=== PATIENT | male | born 1950 | race Caucasian/White ===

== ENCOUNTER → 2017-12-16 | Outpatient (CLI) | payer OTHER | LOC: FIMAGING 12:42 | PROVIDERS: ATTEND Internal Medicine | DX: M79.641 Pain in right hand (principal); M79.89 Other specified soft tissue disorders ==

== ENCOUNTER → 2018-01-23 | Outpatient (CLI) | payer OTHER | LOC: FIMAGING 17:52 | PROVIDERS: ATTEND Internal Medicine | DX: R05 Cough (principal); R94.5 Abnormal results of liver function studies; K75.9 Inflammatory liver disease, unspecified; D72.1 Eosinophilia ==

== ENCOUNTER 2018-01-24 12:26 | Inpatient (IN) | payer OTHER ==
[2018-01-24] MEDS ORDERED: ONDANSETRON DISINTEGRATING 4 MG TAB PO PRN (14:50)
[2018-01-24] MEDS ORDERED: diphenhydrAMINE 25 MG CAP PO PRN (14:50)
[2018-01-24] MEDS ORDERED: PROMETHAZINE HCL 25 MG TAB PO PRN (14:50)
[2018-01-24] MEDS ORDERED: ONDANSETRON 4 MG/2 ML VIAL IVP PRN (14:50)
[2018-01-24] MEDS ORDERED: PROMETHAZINE HCL 25 MG/ML INJ IVP PRN (14:50)
[2018-01-24] MEDS: D5W 1/2 NS 1,000 ML IV SCH (16:04)
[2018-01-24 16:07] LABS: PLATELET COUNT 301 10^3/uL (150-400)
[2018-01-24 16:17] LABS: INR 1.42 (0.83-1.16); PROTIME(PATIENT) 17.5 SEC (12.0-15.0)
[2018-01-24 16:59] LABS: CREATINE KINASE 53 IU/L (0-224)
[2018-01-24] MEDS ORDERED: IOPAMIDOL (ISOVUE-300) 100 ML BTL ONE (17:56)
[2018-01-24] MEDS ORDERED: NAPROXEN SODIUM 220 MG TAB PO PRN (19:46)
[2018-01-24] MEDS ORDERED: IBUPROFEN 200 MG TAB PO PRN (19:46)
[2018-01-24] MEDS ORDERED: ASPIRIN EC 325 MG TAB PO PRN (19:47)
--- NOTE | 2018-01-24 19:53 | PDGENHP ---
History and Physical - Chief Complaint Acute fever - History of Present Illness Primary care provider: Dr. Chandler Sharma HPI: 67-year-old male presenting with acute fever characterized as temperature of a 101 degrees F or greater, with associated general malaise including anorexia, chills, fatigue, headache, myalgias, nonproductive cough. Onset of symptoms was 4 weeks ago, on his 1st day in [place]. The patient did not have any clearly identifiable precipitant, and prior to his onset of symptoms, he had otherwise been feeling well. The 1st symptom that he noted was fatigue and then the other symptoms began to involved. His headache is located posteriorly and is not associated with any neck stiffness or photophobia. Over the past several days, his fever seems to be worsening, as does his nonproductive cough. The fevers seems to be temporarily alleviated by ASA. The patient otherwise denies any preceding night sweats, hematochezia, melena, vomiting or diarrhea. He has not recently changed any of his medications, and he has followed up with his primary care provider for the symptoms, who raman labs that noted severe eosinophilia, leukocytosis, transaminitis, and elevated inflammatory markers. History Information - Allergies/Home Medication List Allergies/Adverse Reactions: No Known Allergies Allergy (Unverified 11/18/15 16:26) Home Medications: Aspirin [Aspirin 81mg (*)] 81 mg PO DAILY 11/18/15 [Last Taken 01/24/18 05:00] Atorvastatin Calcium [Lipitor 10 mg (RX)] 10 mg PO DAILY 11/18/15 [Last Taken ] Cholecalciferol Vit D3 [Vitamin D3 (OTC)] 1,000 units PO DAILY 11/18/15 [Last Taken 01/23/18] Ezetimibe [Zetia 10 MG (RX)] 10 mg PO DAILY 11/18/15 [Last Taken 01/23/18] Herbals/Supplements -Info Only 1 ea PO DAILY 01/24/18 [Last Taken Unknown] Ibuprofen [Motrin (*)] 400 mg PO Q8 PRN 01/24/18 [Last Taken Unknown] Levothyroxine Sodium 75 mcg PO DAILY@06 01/24/18 [Last Taken 01/24/18] Naproxen Sodium [Aleve 220 MG (*)] 220 mg PO BID PRN 01/24/18 [Last Taken Unknown] [place]-3 Fatty Acids [Fish Oil 1000 mg (*)] 1,000 mg PO DAILY 01/24/18 [Last Taken 01/23/18] I have personally reviewed and updated: family history, medical history, social history, surgical history - Past Medical History Additional medical history: Pulmonary nodule w/ normal PET scan 2010. Cardiac coronary calcifications on ASA 81 - Surgical History Reports: no pertinent surgical hx - Family History Additional family history: no rheumatologic abnormalities, aunt w/ leukemia, no lymphomas - Social History Smoking Status: Never smoked Alcohol Use: Occasionally Drug Use: None Additional social history: active lifestyle, most recent travel was [place] over past 4 weeks, and prior to that was [place] and [facility] within past several months; most recent international travel was [place] 1 year ago Review of Systems Review of Systems: ROS: 10pt was reviewed & negative except for what was stated in HPI & below Constitutional: Reports: fever, malaise, weakness Respiratory: Reports: cough Gastrointestinal: Reports: other (anorexia) Neurological: Reports: headache Physical Exam Physical Exam: Temp Pulse Resp BP Pulse Ox 36.9 C 82 20 115/63 94 01/24/18 16:29 01/24/18 16:29 01/24/18 16:29 01/24/18 16:29 01/24/18 16:29 Constitutional: appears nourished, not in pain, uncomfortable Eyes: PERRL, anicteric sclera, EOMI Ears, Nose, Mouth, Throat: moist mucous membranes, hearing normal, ears appear normal, no oral mucosal ulcers Cardiovascular: regular rate and rhythym, no murmur, rub, or gallop, No edema Respiratory: no respiratory distress, no rales or rhonchi, clear to auscultation Gastrointestinal: normoactive bowel sounds, other (Nontender, palpable liver, no splenomegaly), No tenderness, No guarding, No distension Skin: warm, rash, No abrasion (dblanchable circumscribed area on his left upper extremity ventral surface) Musculoskeletal: other (Full range of motion of neck without any pain elicited, no tenderness over the posterior spine) Neurologic: AAOx3, sensation intact bilaterally, No weakness, No facial droop Psychiatric: interacting appropriately, not anxious, not encephalopathic, thought process linear Lymph, Heme, Immunologic: no supraclavicular LAD, other (Palpable but nontender bilateral 1 cm submandibular lymph nodes, no axillary lymphadenopathy) Lab Data & Imaging Review 01/24/18 15:50 01/24/18 15:50 WBC 12.37 10^3/uL (3.80-9.50) H 01/24/18 15:50 RBC 3.75 10^6/uL (4.40-6.38) L 01/24/18 15:50 Hgb 11.7 g/dL (13.7-17.5) L 01/24/18 15:50 Hct 33.2 % (40.0-51.0) L 01/24/18 15:50 MCV 88.5 fL (81.5-99.8) 01/24/18 15:50 MCH 31.2 pg (27.9-34.1) 01/24/18 15:50 MCHC 35.2 g/dL (32.4-36.7) 01/24/18 15:50 RDW 13.2 % (11.5-15.2) 01/24/18 15:50 Plt Count 301 10^3/uL (150-400) 01/24/18 15:50 MPV 9.4 fL (8.7-11.7) 01/24/18 15:50 Neut % (Auto) 83.9 % (39.3-74.2) H 01/24/18 15:50 Lymph % (Auto) 3.0 % (15.0-45.0) L 01/24/18 15:50 Taylor % (Auto) 7.8 % (4.5-13.0) 01/24/18 15:50 Eos % (Auto) 4.4 % (0.6-7.6) 01/24/18 15:50 Baso % (Auto) 0.3 % (0.3-1.7) 01/24/18 15:50 Nucleat RBC Rel Count 0.0 % (0.0-0.2) 01/24/18 15:50 Absolute Neuts (auto) 10.37 10^3/uL (1.70-6.50) H 01/24/18 15:50 Absolute Lymphs (auto) 0.37 10^3/uL (1.00-3.00) L 01/24/18 15:50 Absolute Monos (auto) 0.97 10^3/uL (0.30-0.80) H 01/24/18 15:50 Absolute Eos (auto) 0.55 10^3/uL (0.03-0.40) H 01/24/18 15:50 Absolute Basos (auto) 0.04 10^3/uL (0.02-0.10) 01/24/18 15:50 Absolute Nucleated RBC 0.00 10^3/uL (0-0.01) 01/24/18 15:50 Immature Gran % 0.6 % (0.0-1.1) 01/24/18 15:50 Seg Neutrophils % 78 % 01/24/18 15:50 Band Neutrophils % 5 % 01/24/18 15:50 Lymphocytes % 2 % 01/24/18 15:50 Monocytes % 11 % 01/24/18 15:50 Eosinophils % 4 % 01/24/18 15:50 Immature Gran # 0.07 10^3/uL (0.00-0.10) 01/24/18 15:50 Absolute Seg Neuts 9.65 10^/uL (1.70-6.50) H 01/24/18 15:50 Absolute Band Neuts 0.62 10^3/uL (0.00-0.70) 01/24/18 15:50 Absolute Lymphocytes 0.25 10^3/uL (1.00-3.00) L 01/24/18 15:50 Absolute Monocytes 1.36 10^3/uL (0.30-0.80) H 01/24/18 15:50 Absolute Eosinophils 0.49 10^3/uL (0.03-0.40) H 01/24/18 15:50 RBC/WBC/PLT Morphology NORMAL (NORMAL) 01/24/18 15:50 Platelet Estimate ADEQUATE (ADEQ) 01/24/18 15:50 PT 17.5 SEC (12.0-15.0) H 01/24/18 15:50 INR 1.42 (0.83-1.16) H 01/24/18 15:50 APTT 30.1 SEC (23.0-38.0) 01/24/18 15:50 Sodium 133 mEq/L (135-145) L 01/24/18 15:50 Potassium 4.2 mEq/L (3.5-5.2) 01/24/18 15:50 Chloride 98 mEq/L (97-110) 01/24/18 15:50 Carbon Dioxide 22 mEq/l (22-31) 01/24/18 15:50 Anion Gap 13 mEq/L (8-16) 01/24/18 15:50 BUN 30 mg/dL (7-23) H 01/24/18 15:50 Creatinine 1.2 mg/dL (0.7-1.3) 01/24/18 15:50 Estimated GFR > 60 01/24/18 15:50 Glucose 131 mg/dL (70-100) H 01/24/18 15:50 Calcium 8.5 mg/dL (8.5-10.4) 01/24/18 15:50 Total Bilirubin 1.4 mg/dL (0.1-1.4) 01/24/18 15:50 AST 39 IU/L (17-59) 01/24/18 15:50 ALT 125 IU/L (21-72) H 01/24/18 15:50 Alkaline Phosphatase 236 IU/L (38-126) H 01/24/18 15:50 Creatine Kinase 53 IU/L (0-224) 01/24/18 15:50 Total Protein 6.4 g/dL (6.3-8.2) 01/24/18 15:50 Albumin 3.2 g/dL (3.5-5.0) L 01/24/18 15:50 TSH 0.714 uIU/mL (0.465-4.680) 01/24/18 15:50 Urine Color MARGI 01/24/18 16:20 Urine Appearance HAZY 01/24/18 16:20 Urine pH 5.0 (5.0-7.5) 01/24/18 16:20 Ur Specific [place] 1.023 (1.002-1.030) 01/24/18 16:20 Urine Protein 1+ (NEGATIVE) H 01/24/18 16:20 Urine Ketones NEGATIVE (NEGATIVE) 01/24/18 16:20 Urine Blood NEGATIVE (NEGATIVE) 01/24/18 16:20 Urine Nitrate NEGATIVE (NEGATIVE) 01/24/18 16:20 Urine Bilirubin NEGATIVE (NEGATIVE) 01/24/18 16:20 Urine Urobilinogen 2.0 EU (0.2-1.0) H 01/24/18 16:20 Ur Leukocyte Esterase NEGATIVE (NEGATIVE) 01/24/18 16:20 Urine RBC 1-3 /hpf (0-3) 01/24/18 16:20 Urine WBC 5-10 /hpf (0-3) H 01/24/18 16:20 Ur Epithelial Cells NONE SEEN /lpf (NONE-1+) 01/24/18 16:20 Hyaline Casts 15-25 /lpf (0-1) H 01/24/18 16:20 Granular Casts 5-15 /lpf (0-1) 01/24/18 16:20 Urine Mucus 2+ /lpf (NONE-1+) H 01/24/18 16:20 Urine Glucose NEGATIVE (NEGATIVE) 01/24/18 16:20 Visualized and Interpreted imaging results: Yes Interpretation: No significant pulmonary abnormalities, small nodules, hepatomegaly with some heterogenous appearance Assessment & Plan Assessment: 67-year-old male presenting with persistent fevers and general malaise, eosinophilia, transaminitis Plan: 1. Fevers. Acute, new problem this provider, further workup indicated. Possible etiologies include parasitic verses malignancy -discussed with Dr. Grady García, he has reviewed patient's current CBC which does not demonstrate nearly a significant of eosinophilia as previous ones from 01/20/18, which was 59%, suggesting that the driving process may be subsiding -that being said, the patient's fevers are both persistent and symptomatically worsening, and malignancy should be considered particularly since patient has a heterogenous appearing liver on CT scan -getting head CT with IV contrast to rule out any brain lesions -will get AFP and CEA -repeating inflammatory markers, most recent ESR 28, CRP 37, LDH 778 -strong ovoid is pending -flow cytometry pending -if the consensus tomorrow as that this may be driven by malignancy, would recommend formal oncology consultation -most recent outpatient labs prior to this episode were 01/16/2015, outside records reviewed, demonstrating a white blood cell count of 4900 with a normal differential, hemoglobin of 14.2 -supportively treat with aspirin, per patient request 2. Transaminitis. Patient's current AST ALT and alk phos are better than previous lab draws from 1 week ago, indicating that the underlying process may be self resolving but the patient's hepatic appearance is certainly concerning -acute hepatitis panel negative -holding statin and Zetia until resolved 3. Suspected coronary artery disease. Chronic, chronically on aspirin 81, currently holding given the patient wants to take aspirin 325 as needed for fevers Diet. Regular Prophylaxis. High risk patient, hold pharmacologic in case liver biopsy indicated, placed on SCDs Code. Full Disposition. Anticipated discharge is potentially 3/3, but the patient continues to experience persistent fevers, requires ongoing infectious or malignant workup, then patient will be upgraded to inpatient admission status tomorrow by Dr. Martinez.
[2018-01-25] MEDS: ASPIRIN EC 325 MG TAB PO PRN ×3 (00:21→15:49)
[2018-01-25] MEDS: D5W 1/2 NS 1,000 ML IV SCH ×2 (02:18→14:09)
[2018-01-25] MEDS: LEVOTHYROXINE 75 MCG TAB PO SCH (05:08)
[2018-01-25 06:04] LABS: PLATELET COUNT 297 10^3/uL (150-400)
[2018-01-25] MEDS: CHOLECALCIFEROL VIT D3 1,000 UNITS TAB PO SCH (07:49)
[2018-01-25] MEDS: OMEGA-3 FATTY ACIDS 1,000 MG CAP PO SCH (07:49)
[2018-01-25] MEDS ORDERED: ENOXAPARIN 40 MG/0.4 ML SYR SC SCH (09:00)
[2018-01-25] MEDS ORDERED: ASPIRIN 81 MG CHEWABLE TAB PO SCH (09:00)
[2018-01-25] MEDS ORDERED: Herbals/Supplements -Info Only PO SCH (09:00)
[2018-01-25] MEDS ORDERED: IOPAMIDOL (ISOVUE-300) 100 ML BTL ONE (09:21)
--- NOTE | 2018-01-25 13:52 | GCON ---
[f rep st] CONSULTATION DATE OF CONSULTATION: 01/24/2018 REFERRING PHYSICIAN: Spencer Sharma MD REASON FOR REFERRAL: Fever and eosinophilia. HISTORY OF PRESENT ILLNESS: Patient is a 67-year-old male, who was seen by his primary care chrystal franco last week after returning from a [id number] week trip with his to [place]. The patient was i n good health when he left for [place]. He reported being tired almost immediately after being [place] . [place] had [place] exposures. They did eat local cuisine and seafood, including shrimp. He did walk on the beach, but there were no obviou s odd encounters. Initially, the patient symptoms in [place] were mostly fatigue. Began developing w orsening night sweats and body aches. Also, noted the increasing episode of fever. Patient was seen in [place] and told it was a viral illness. Patient returned home to [place] and saw his primary ct re physician on 01/20 when he had blood drawn. That blood draw revealed a leukocytosis to 18,400, wi th a relative eosinophilia of 59%. Repeat CBC was done on 01/23/2018 which showed a leukocytosis of 15.2, with an eosinophilia of 31%. He was recommended for admission today. Admitting labs today patsy w no significant eosinophilia. He has a mild retained leukocytosis of 12.4, with an eosinophil perce nt of 4%, absolute count 550. Currently, the patient is resting comfortably in his hospital bed. He is accompanied by his . Symptoms include fever with sweats. He has generalized muscle and join t aches but nothing specific. Mild headache. No vision changes or photophobia. No nausea, vomiting , or diarrhea. No urinary symptoms. PAST MEDICAL HISTORY: 1. History of a pulmonary nodule. 2. Coronary artery disease. PAST SURGICAL HISTORY: No significant surgery. ANTIBIOTICS: Patient is on no antibiotics presently. ALLERGIES: No known drug allergies. SOCIAL HISTORY: Patient is . No significant tobacco or drug use. Averages approximately 1 d rink a day. No recent travel other than [place]. Other travel within the year has been in the [place]. Over a year ago was in [place] with his . REVIEW OF SYSTEMS: Other than that detailed above in his present illness, comprehensive 10-system re view is negative. PHYSICAL EXAMINATION: VITAL SIGNS: Temperature, maximum, is 39.6. Temperature, current, is 37.4, h eart rate 64, respiratory rate is 16, blood pressure is 106/65. GENERAL: The patient is a well-form ed, well-nourished, nontoxic-appearing male, in no acute distress. He is pleasant in demeanor. He i s alert and oriented x3. HEENT: Normocephalic for age. Atraumatic. No scleral icterus. No oral l esion. No drainage from the nares. EYES: Lids and conjunctivae are within normal limits. Pupils a re equal and round bilaterally. NECK: Supple. No meningismus. LUNGS: Clear to auscultation bilat erally. There is good effort. HEART: Regular rate and rhythm. No murmur, rub, or gallop noted. N o significant peripheral edema. SKIN: Warm and dry to the touch. No rash or lesion noted. ABDOMEN : Soft, nontender. No masses. MUSCULOSKELETAL: No muscle tenderness is noted. No joint line effu zak or arthritis seen. NEURO: Cranial nerves 2-12 seem to be intact. Peripheral sensation seems i ntact in extremities. LABORATORY DATA: The patient has a CBC dated 01/24/2018 that shows a white blood cell count of 12.37 , hemoglobin of 11.7, hematocrit of 33.2, and a platelet count of 301. Differential is left-shifted with 84% segmented neutrophils. Serum chemistries on 01/24/2018 show a sodium of 133, potassium 4.2, chloride of 98, bicarbonate of 22, BUN of 30 and creatinine of 1.2. AST is 39. ALT is 125. Urinalysis on 01/24/2018 shows 5-10 white cells per high-powered field. CD4 count on 01/23/2018 show s an absolute lymphocyte count of 760, with 473 absolute CD4 cells. Hepatitis antibodies are negativ e, apart from the hep B surface antibody. Strongyloides IgG antibody is negative. ASSESSMENT: Fever and eosinophilia. What is surprising in this case is the eosinophilia has dropped to normal today from the extraordinarily elevated level 5 or 6 days ago. This read was confirmed by review of the smear in the laboratory today. I think this probably rules out a lot of hematologic e xpansion conditions. However, fungal or parasitic disease could still be in the picture. 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 This requires consumption of food stuffs contaminated by intermediate hosts, such as sna ils, crabs, and sometimes theoretically shrimp. This may be the situation in this patient, although this is a rare condition. Also, this condition usually manifests as meningitis. The diagnostic rout e forward was discussed with Dr. Andrews. We will do a contrasted CT of his chest, abdomen, and pelvi s, and then will add a head CT with contrast on this. If we see any pathology which needs to be addr essed, we will pursue that. If there is no pathology and diagnosis is elusive, we will pursue an LP for spinal fluid to see if he has eosinophilia in the spinal fluid. If this is true, we can send spe cialty tests out for PCR amplification for angiostrongyliasis. There is no treatment for this condit ion, only supportive care. PLAN: 1. Observe fever curve and trends in leukocytosis in subgroups of white count. 2. Follow his clinical course. 3. Imaging as described above. /[id number]/MODL
[2018-01-25] MEDS ORDERED: NS 500 ML IV ONE (15:50)
--- NOTE | 2018-01-25 16:27 | ASMTCMCOM ---
CM Note CM Note Notes: Spoke w/RN, anticipates pt will dc home w/support of when medically stable. CM available for any changes. DC Plan: Independent Date Signed: 01/25/2018 04:26 PM Electronically Signed By:Jessica Moreira RN
[2018-01-25] MEDS: ACETAMINOPHEN 325 MG TAB PO PRN ×2 (18:34→22:12)
--- NOTE | 2018-01-25 18:42 | PCMIDPN ---
Assessment/Plan: Assessment/Plan: 1. Fevers, Eosinophilia, abnormal liver scan: -uncertain as to the etiology of his symptoms and abnormal scan -He also has thickened distal esophagus of uncertain etiology -blood cx pending--will follow -had diarrhea today, so GI pathogen PCR and stool O & p sent. -Will do resp pathogen pcr as well to ensure no concomitant influenza or viral infection -Reviewed Ct chest/abd images with radiology: no well defined collection to suggest liver abscess. Chest without changes to suggest septic emboli. liver changes concerning for possible cancer/?mets per radiology. -If cultures remain negative, Recommend further evaluation by Hem/Onc as he will likely need liver biopsy. Also recommend evaluation by GI for possible EGD. - Reviewed labs with patient, at bedside. Discussed possible differential diagnosis. - Given abnormalities seen on liver and distal esophagus feel we should pursue those first. Given relatively mild headache and not classic symptoms of meningitis and the aforementioned abnormalities, will hold off on LP at this time. -Continue to observe off antibiotics for now. -care coordinated with his PCP. -coordinating care with hospitalist team. - care coordinated with RN. Meds --no antbx Subjective: intermittent fevers. occasional chills with fevers. only mild intermittent headache without neck stiffness. dry cough. fatigue. loose stools this Am. some myagias. no arthralgias. denies rash. symptoms of fatigue started about 2 weeks prior to trip to [place]. Then in [place] sx of fevers, myalgias started. after returning home, sx seemed more pronounced with respect to fevers, fatigue, and myalgias. he eats well cooked meats and seafood. he does not eat cervicea. shrimp is cooked. No freshwater exposure here in [place] or in [place]. mostly walked the beach. he states his weight has been stable. denies epigastric pain, nausea, sx of acid reflux. Reviewed CT's with radiology today. Objective: Vital Signs Temp Pulse Resp BP Pulse Ox 39.4 C H 86 20 100/56 L 91 L 01/25/18 18:25 01/25/18 18:25 01/25/18 18:25 01/25/18 18:25 01/25/18 18:25 Laboratory Results 01/25/18 05:25 01/25/18 05:25 01/24/18 01/25/18 01/26/18 05:59 05:59 05:59 Intake Total 2937 2382 Output Total 870 500 Balance 2067 1882 ESR 64 MM/HR (0-20) H 01/25/18 05:25 C-Reactive Protein 209.2 mg/L (<10.0) H 01/25/18 05:25 - Physical Exam General Appearance: alert, no apparent distress Respiratory: lungs clear Neck: supple Cardiac/Chest: regular rate, rhythm Extremities: No swelling Abdomen: normal bowel sounds, non-tender, soft, No distended Skin: No rash - Time Spent With Patient Time Spent with Patient: greater than 35 minutes Time Spent with Patient: Greater than 35 minutes spent on this patients care, greater than 50% of time spent counseling, educating, and coordinating care regarding the above mentioned plan. ICD10 Worksheet Patient Problems: Problems Problem Status Onset Fever Acute
[2018-01-25] MEDS ORDERED: NS 1,000 ML IV ONE (19:38)
--- NOTE | 2018-01-25 19:45 | HOSPPROG ---
Hospitalist Progress Note Assessment/Plan: DIAGNOSES: -acute febrile illness of uncertain etiology -acute early sepsis developing today (new problem at this time with further assessment and management required) -single diarrheal stool today without pain or bleeding -severe eosinophilia at 10,000 at initial evaluation has now resolved down to 300 -elevated serologic markers of inflammation with high CRP and sed rate -mild hepatic transaminase elevations probably related to the above -recent travel to [place], symptoms may have actually started before travel to [place]; no other specific exposures identified in his history -no imaging findings yet to suggest a local source or site or etiology of his illness PLANS: -will begin IV fluid resuscitation right now and check serum lactate, follow for any further progression of sepsis like changes -follow cultures another serologic studies closely -I have ordered stool samples for ova and parasites and the GI pathogen panel -I agree with Dr. Soriano that at this point no specific signs of meningitis and reasonable to delay a decision to proceed with lumbar puncture unless worsening headache or neurologic symptoms develope -continue on observation without antibiotics at this time; however if he has progression of sepsis would start some empiric antibiotics -agree with respiratory viral pathogen panel SUBJECTIVE: Still having rigors and chills but no other localizing symptoms or discomforts at all Poor appetite but eating no nausea He did have 1 episode of diarrheal stool earlier today without any abdominal pain or blood OBJECTIVE Vitals reviewed: T-max today so far 39.4, the patient was having some mild rigors as I visited him, blood pressures are drifting down during the day, some degree of tachypnea as well Exam: alert oriented appears mildly uncomfortable but not in any pain Mentation is normal, affect normal No adenopathy anywhere HEENT exam entirely normal skin warm dry color ok no rash or other skin lesions shins noted; notably he does have fairly poor capillary refill in his fingers during my exam with a minimal peripheral cyanosis resps not labored lungs clear BSs heart regular no murmur heard abd soft nondistended nontender, bowel sounds present limbs warm, no edema No tremors or fasciculations, no focal weakness, no cranial nerve abnormalities , pupils normal with normal light reflexes iv site ok I reviewed his CTs head scan images today which did not show any particular abnormalities of concern including nothing that would explain his fever illness Microbiology data: Cultures all pending with no growth at this time Laboratory data: Some improvement continues in his eosinophilia which is now normal White blood cell count slightly improved CRP greater than 200 also very high sed rate Liver enzymes slightly better today Renal function stable Objective: Vital Signs Temp Pulse Resp BP Pulse Ox 37.6 C 79 16 96/49 L 92 01/25/18 19:03 01/25/18 19:03 01/25/18 19:03 01/25/18 19:03 01/25/18 19:03 Laboratory Results 01/25/18 05:25 01/25/18 05:25 01/24/18 01/25/18 01/26/18 06:59 06:59 06:59 Intake Total 2937 2382 Output Total 870 500 Balance 2067 1882 PT 17.5 SEC (12.0-15.0) H 01/24/18 15:50 INR 1.42 (0.83-1.16) H 01/24/18 15:50 - Time Spent With Patient Time Spent with Patient: greater than 35 minutes Time Spent with Patient: Greater than 35 minutes spent on this patients care, greater than 50% of time spent counseling, educating, and coordinating care regarding the above mentioned plan. ICD10 Worksheet Patient Problems: Problems Problem Status Onset Fever Acute - ICD10 Problem Qualifiers (1) Fever
--- NOTE | 2018-01-25 20:29 | PDMN ---
Medical Necessity Medical necessity: C/M review: Patient meets INPT criteria under [facility] M-160 Sepsis and other febrile illness without focal infection: Acute and persistent febrile illness of uncertain etiology, ongoing high fevers to 39.4 T max, acute early sepsis developing 01/25/2018 (new problem), single diarrheal stool 01/25/2018 , WBC 12.37, 11.58, VBG lactic acid 2.7, Na 133 x 2, BUN 30, 25, ALT 125, 100, Alk Phos 236, 204, C-reactive protein 209.2, ESR 64, GI tract panel pending, stool cultures pending, requiring IV NS bolus 01/25/18, ongoing IV D51/2 NS 100 ml /hr, assessment and management of sepsis, comorbid travel to [place] prior to this admission. anticipates > 2 [place] LOS for ongoing med nec. Patient is Medicare Advantage which follows guidelines CMS puts forth.
[2018-01-26] MEDS: D5W 1/2 NS 1,000 ML IV SCH ×2 (01:45→14:13)
[2018-01-26 05:27] LABS: PLATELET COUNT 274 10^3/uL (150-400)
[2018-01-26] MEDS: LEVOTHYROXINE 75 MCG TAB PO SCH (06:01)
[2018-01-26] MEDS: CHOLECALCIFEROL VIT D3 1,000 UNITS TAB PO SCH (10:01)
[2018-01-26] MEDS: OMEGA-3 FATTY ACIDS 1,000 MG CAP PO SCH (10:01)
--- NOTE | 2018-01-26 11:59 | HOSPPROG ---
Hospitalist Progress Note Assessment/Plan: DIAGNOSES: -acute febrile illness of uncertain etiology -acute early sepsis developing 3/3 appears resolved at this time -single diarrheal stool 3/3 was likely due to contrast for his CT scan * I do not think the E coli identified in the stool pathogen panel likely rib present true pathogen in his case -severe eosinophilia at 10,000 at initial evaluation has now resolved down to 140 very rapidly -elevated serologic markers of inflammation with high CRP >200 and sed rate -mild hepatic transaminase elevations probably related to the above * Continued improvement * Subtle changes are seen on CT imaging of his liver, not mentioned in the initial CT scan report, presumably related to his illness but her of uncertain pathology or etiology -recent travel to [place], symptoms may have actually started before travel to [place]; no other specific exposures identified in his history -no imaging findings yet to suggest a local source or site or etiology of his illness I reviewed in detail today with Dr. Soriano. At this time he feels better and looks more relaxed. There are still no concerning examination findings. White blood cell count numbers are all improving liver numbers are improving and no other real concerning blood test abnormalities at this point. The early sepsis that was starting up last evening seems to be resolved but will need to watch closely. There is still no identified cause of this illness. The high eosinophilic count raises questions about a number of potential etiologies but with rapid resolution without any treatment unclear exactly what this high eosinophilic count means. The presence however of such high fevers over such a period of time without any obvious localizing syndrome or diagnostic findings would be potentially consistent with a number of eosinophilic illnesses including parasitic or otherwise. PLANS: -follow the clinical course of his fevers closely and watch for any signs of recurring sepsis -follow cultures and other serologic studies closely -I have ordered stool samples for ova and parasites but these are still needing to be collected -I agree with Dr. Soriano that at this point no specific signs of meningitis and reasonable to delay a decision to proceed with lumbar puncture unless worsening headache or neurologic symptoms develope -continue on observation without antibiotics at this time; however if he has progression of sepsis or any signs of a bacterial process would start some empiric antibiotics -waiting on respiratory viral pathogen panel result SUBJECTIVE: Had severe sweats last night needing to change his bedding twice No rigors so far today No new localizing symptoms, discomforts, or other changes that he can mention OBJECTIVE Vitals reviewed: Fevers up to 39.4 early last evening but have been afebrile since then; blood pressures remain borderline low, pulse respirations normal, oxygen saturations normal Exam: alert oriented looks more comfortable and relaxed right at the moment not having any rigors Mentation is normal, affect normal No adenopathy anywhere HEENT exam entirely normal skin warm dry color ok no rash or other skin lesions shins noted; capillary refill much better in his fingers today Respirations relaxed lungs clear BSs heart regular no murmur heard abd soft nondistended nontender, bowel sounds present limbs warm, no edema, joints all normal, no clubbing no other nail changes No tremors or fasciculations, no focal weakness, no cranial nerve abnormalities , pupils normal with normal light reflexes iv site ok Laboratory data: Total white blood cell count continues to decrease still 11, eosinophils now at 140 Liver again enzymes slightly better today Renal function stable no new concerning abnormalities Notably he has a CEA and AFP that are normal Microbiology data: Blood cultures remain normal Stool pathogen study shows positive for enteropathogenic E coli I spoke with Dr. Sharma his primary care his said that he had done a flow cytometry study it in the outpatient setting prior to admission and this appeared normal, but I do not have those results available at this time. Objective: Vital Signs Temp Pulse Resp BP Pulse Ox 36.3 C 64 20 107/63 97 01/26/18 11:07 01/26/18 11:07 01/26/18 11:07 01/26/18 11:07 01/26/18 11:07 Microbiology 01/25/18 19:35 Respiratory Panel (PCR) - Final Nasal, Sinus - Swab No Organism Detected 01/25/18 16:30 Gastrointestinal Tract Panel (PCR) - Final Stool E.coli Enteropathogenic(Epec) Laboratory Results 01/26/18 04:45 01/26/18 04:45 01/25/18 01/26/18 01/27/18 06:59 06:59 06:59 Intake Total 2937 2532 4352 Output Total 870 800 50 Balance 2067 1732 4302 PT 17.5 SEC (12.0-15.0) H 01/24/18 15:50 INR 1.42 (0.83-1.16) H 01/24/18 15:50 - Time Spent With Patient Time Spent with Patient: greater than 35 minutes Time Spent with Patient: Greater than 35 minutes spent on this patients care, greater than 50% of time spent counseling, educating, and coordinating care regarding the above mentioned plan. ICD10 Worksheet Patient Problems: Problems Problem Status Onset Fever Acute - ICD10 Problem Qualifiers (1) Fever
--- NOTE | 2018-01-26 16:09 | PCMIDPN ---
Assessment/Plan: Assessment/Plan: 1. Fevers, Eosinophilia, abnormal liver scan: -uncertain as to the etiology of his symptoms and abnormal scan -He also has thickened distal esophagus of uncertain etiology -blood cx ngtd -Gi pcr panel with EPEC. no further diarrhea. This is not responsible for his clinical presentation. Does not warrant treatment. REviewed with patient. -Resp pcr neg. Strongyloides negative. Hepatitis panel negative. (positive Hep B Ab). - AFP and CEA negative. -Reviewed Ct chest/abd images with radiology: no well defined collection to suggest liver abscess. Chest without changes to suggest septic emboli. liver changes concerning for possible cancer per radiology. - Reviewed labs with patient, at bedside. Discussed possible differential diagnosis. - Recommend Hem/Onc evaluation. He will likely need liver biopsy. - He may benefit with eventual EGD at some point to evaluate further the esophageal findings. - Will check autoimmune work up. -Continue to observe off antibiotics for now. -coordinating care with hospitalist team. Meds --no antbx Subjective: no fever spikes today and patient states he hasn't really taken any medications for it. he feels so much better. still with fatigue but no myalgias. cough has resolved. some loose stools but no diarrhea and stools now forming up. denies abd pain. He tells me today that about two months ago he developed swelling , redness and pain involving his right third MCP region. He didn't take anything for it but after about a month, he saw his PCP and he started taking Aleve two tablets in the morning and two at night. One week later he started to feel fatigue. This continued into his trip to [place]. While in [place] he changed medications and started taking Advil between 4-6 tablets a day. Over time the right third MCP area became less red and painful and swelling started to improve but still hasn't resolved yet. While in [place], he continued to have fevers. Upon return, his symptoms were worse with respect to fevers, myalgias. He then changed and started taking aspirin 325mg about 4-6 tablets a day he thinks. he didn't take tylenol except for getting some in here while hospitalized. He states he has not noticed any blood in stools. no weight loss.Overall today, he feels his symptoms have improved. Objective: Vital Signs Temp Pulse Resp BP Pulse Ox 36.3 C 64 20 107/63 97 01/26/18 11:07 01/26/18 11:07 01/26/18 11:07 01/26/18 11:07 01/26/18 11:07 Microbiology 01/25/18 19:35 Respiratory Panel (PCR) - Final Nasal, Sinus - Swab No Organism Detected 01/25/18 16:30 Gastrointestinal Tract Panel (PCR) - Final Stool E.coli Enteropathogenic(Epec) Laboratory Results 01/26/18 04:45 01/26/18 04:45 01/25/18 01/26/18 01/27/18 05:59 05:59 05:59 Intake Total 2937 2532 4352 Output Total 870 800 50 Balance 2067 1732 4302 ESR 64 MM/HR (0-20) H 01/25/18 05:25 C-Reactive Protein 209.2 mg/L (<10.0) H 01/25/18 05:25 - Physical Exam General Appearance: alert, no apparent distress Respiratory: lungs clear Cardiac/Chest: regular rate, rhythm Extremities: other (mild swelling over right third MCP, no erythema. not warm. small possible nodule felt just above that region over prox phalanx. ), No swelling Abdomen: normal bowel sounds, non-tender, soft, No distended Skin: No erythema - Time Spent With Patient Time Spent with Patient: greater than 35 minutes Time Spent with Patient: Greater than 35 minutes spent on this patients care, greater than 50% of time spent counseling, educating, and coordinating care regarding the above mentioned plan. ICD10 Worksheet Patient Problems: Problems Problem Status Onset Fever Acute
[2018-01-26] MEDS: ACETAMINOPHEN 325 MG TAB PO PRN (17:52)
[2018-01-27] MEDS: D5W 1/2 NS 1,000 ML IV SCH (05:17)
[2018-01-27] MEDS: LEVOTHYROXINE 75 MCG TAB PO SCH (05:19)
[2018-01-27 05:55] LABS: PLATELET COUNT 321 10^3/uL (150-400)
[2018-01-27] MEDS: CHOLECALCIFEROL VIT D3 1,000 UNITS TAB PO SCH (10:52)
[2018-01-27] MEDS: OMEGA-3 FATTY ACIDS 1,000 MG CAP PO SCH (10:52)
--- NOTE | 2018-01-27 11:05 | PCMIDPN ---
Assessment/Plan: Assessment/Plan: * Fever/Eosinophilia: Initially with profound eosinophilia with prompt decrease now increased again today to 1190. CT A/P reviewed showing diffuse infiltrative process. Query malignant etiology such as T- cell lymphoma. Autoimmune workup underway. No defined etiology to date. Will obtain hematology consultation for further evaluation. Likely will require liver biopsy with goal of obtaining tissue diagnosis. Continue to observe off antibiotics. * Stool culture positive for EPEC: No treatment needed. Not related to above presentation. 01/27/18 11:02 01/27/18 11:06 01/27/18 11:10 Subjective: History, clinical findings, labs and imaging all reviewed. Prior travel and environmental exposures reviewed. Overall feels much better although still quite fatigued. Objective: Vital Signs Temp Pulse Resp BP Pulse Ox 37.4 C 57 L 18 110/65 94 01/27/18 08:00 01/27/18 08:00 01/27/18 08:00 01/27/18 08:00 01/27/18 08:00 Microbiology 01/25/18 19:35 Respiratory Panel (PCR) - Final Nasal, Sinus - Swab No Organism Detected Laboratory Results 01/27/18 05:32 01/27/18 05:32 01/26/18 01/27/18 01/28/18 05:59 05:59 05:59 Intake Total 2532 6352 Output Total 800 850 Balance 1732 5502 ESR 64 MM/HR (0-20) H 01/25/18 05:25 C-Reactive Protein 209.2 mg/L (<10.0) H 01/25/18 05:25 Tm 37.8 Blood cultures no growth Stool EPEC - Physical Exam General Appearance: alert, no apparent distress, non-toxic EENT: No scleral icterus, No thrush, No conjunctival petechiae Respiratory: lungs clear, No respiratory distress Cardiac/Chest: regular rate, rhythm, No systolic murmur Abdomen: non-tender, No distended ICD10 Worksheet Patient Problems: Problems Problem Status Onset Fever Acute
--- NOTE | 2018-01-27 12:09 | GCON ---
[f rep st] CONSULTATION ONCOLOGY CONSULTATION DATE OF CONSULTATION: 01/27/2018 REASON FOR CONSULTATION: 1. Eosinophilia. 2. Abnormal appearing liver. HISTORY OF PRESENT ILLNESS: The patient is a pleasant 67-year-old gentleman who reports abnormal fat igue over the past 1 month. The patient and his recently returned from a vacation in [place]. While in [place], his fatigue w orsened. He developed intermittent night sweats and body aches. He had intermittent fevers. When he returned from [place], he was seen by his primary care physician. He was noted to have leukoc ytosis with eosinophilia. This improved somewhat on subsequent CBCs. When his symptoms did not get better, he presented to the hospital and was admitted for further evaluation. A CT of the chest, abdomen, and pelvis was performed on January 24. This reveals evidence of stable arron ateral pulmonary nodules when compared to prior studies done in 2012, almost certainly representing b enign pulmonary nodules. He was found to have hepatomegaly which was not present on previous scans. There has been development of an abnormal appearing hepatic parenchyma with innumerable hypodense le sions throughout the liver. The patient is scheduled to have a liver biopsy performed. The patient did have a normal colonoscopy done in November of this year. Alpha fetoprotein level was drawn and is normal at 1.24. The patient denies any recent weight loss. He denies adenopathy. He denies blood in the stool or bl ack stools. He is accompanied today by his . PAST MEDICAL HISTORY: 1. History of pulmonary nodules. 2. Coronary artery disease. PAST SURGICAL HISTORY: None. ALLERGIES: No known drug allergies. FAMILY MEDICAL HISTORY: Patient reports his father developed lung cancer. His father was a heavy sm oker. A paternal aunt had what sounds like a soft tissue sarcoma. He denies any other known family history of malignancy. SOCIAL HISTORY: The patient is . 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 He is a former smoker but quit greater than 20 years ago. He drinks a [id number] amount o f beer on a regular basis. REVIEW OF SYSTEMS: As outlined above. Remainder of a 12-point review of systems otherwise negative. PHYSICAL EXAM: GENERAL: The patient is sitting comfortably in a chair. He is in no acute distress. EYES: Pupils equal, sclerae are nonicteric. NECK: No palpable submandibular, cervical, or suprac lavicular adenopathy. No axillary adenopathy. HEART: Regular without murmur. LUNGS: Clear bilate rally without wheeze, rhonchi, or crackles. No flank tenderness. ABDOMEN: Soft, nondistended. The liver is not palpable. There is no abdominal mass. Bowel sounds normoactive. EXTREMITIES: No ext remity swelling or edema. SKIN: No visible skin rash. NEUROLOGIC: Patient alert, oriented, and ap propriate. CT results as outlined above. Sodium 132, potassium 3.5, chloride 105, bicarb 25, BUN 14, creatinine 0.8. AST is 25, ALT 83, alkal ine phosphatase 167, total bilirubin is 0.9. CBC from today, white count 9,800, hemoglobin 10.7, hem atocrit 30.5, platelet count 321,000, absolute neutrophil count is elevated at 6.87, lymphocyte count is depressed at 0.88, monocyte count is elevated at 0.81, eosinophilic count is elevated at 1.19. E SR is elevated at 64. PTT is 30.1, PT is 17.5. IMPRESSION: 1. Eosinophilia and neutrophilia (likely reactive). 2. Hepatomegaly with evidence of diffuse liver lesions. The patient is a pleasant 67-year-old gentleman who presents with approximately 1 month of fatigue, i ntermittent fever, and myalgias. He has evidence of eosinophilia and neutrophilia, which at this poi nt, I believe are reactive. His CT reveals hepatomegaly with multiple liver lesions. The overall pi cture is concerning for possible malignancy. Certainly another cause could be an infectious process. I agree with the plan for a biopsy of one of his liver lesions. I do not favor any additional serolo gic testing currently but would wait for the results of his biopsy to direct any further testing. The above plan was discussed with the patient and his . Their questions were answered. I will plan on meeting with them once again once the results of his biopsy are known. The case was also discussed with Dr. Cruz of the Infectious Disease service. Total time for today's visit was approximately 45 minutes of which greater than 50% was spent in coun seling and care coordination. /[id number]/MODL
[2018-01-27 15:00] LABS: INR 1.21 (0.83-1.16); PROTIME(PATIENT) 15.5 SEC (12.0-15.0)
--- NOTE | 2018-01-27 15:38 | ASMTCMCOM ---
CM Note CM Note Notes: CM spoke w/ Nereida RN regarding d/c POC. The plan remains the same. Pt will most likely d/c independent when medically stable. No therapies ordered at this time. CM available for changes. Plan: Independent Date Signed: 01/27/2018 03:38 PM Electronically Signed By:LISA Trejo
--- NOTE | 2018-01-27 17:29 | HOSPPROG ---
Hospitalist Progress Note Assessment/Plan: Assessment: 67-year-old male presenting with persistent fevers and general malaise, eosinophilia, transaminitis Plan: 1. Fevers. Acute, w/ recurrence of eosinophilia today and Tmax 101F o/n, unclear etiology - rheum labs pending - strongolyoides neg, EPEC unlikely to be contributing cause - inflammatory markers (CRP/ESR) rising from prior outpt eval - cont to monitor off Abx 2. Transaminitis w/ hepatic lesions. Acute, new problem to this provider, further w/u indicated. Present on cT w/ hepatomegally (personally interpreted), unclear etiology - d/w Dr. Cruz, he recommends liver biopsy given possibility of malignancy, and he has consulted w/ Dr. Serna today - liver biopsy arranged via US by Dr. Valera tomorrow, send path, gram stain, cx , and getting US today to determine best visibility - NPO after MN 3. Suspected coronary artery disease. Chronic, chronically on aspirin 81, currently holding given the patient wants to take aspirin 325 as needed for fevers 4. Acute metabolic acidosis. 2/2 lactic acid, likely 2/2 hypovolemia, resolved w / IVF, symptomatically improved Diet. Regular Prophylaxis. High risk patient, hold pharmacologic for liver biopsy, placed on SCDs Code. Full Disposition. Anticipated discharge is potentially 3/6 s/p biopsy, vs. 3/7 depending on post-biopsy monitoring Subjective: patient feeling more energy, would like to pursue biopsy Objective: Vital Signs Temp Pulse Resp BP Pulse Ox 37.1 C 59 L 18 104/70 98 01/27/18 16:00 01/27/18 16:00 01/27/18 16:00 01/27/18 16:00 01/27/18 16:00 Laboratory Results 01/27/18 05:32 01/27/18 05:32 01/26/18 01/27/18 01/28/18 05:59 05:59 05:59 Intake Total 2532 6352 Output Total 800 850 Balance 1732 5502 PT 15.5 SEC (12.0-15.0) H 01/27/18 14:40 INR 1.21 (0.83-1.16) H 01/27/18 14:40 - Physical Exam Constitutional: no apparent distress, appears nourished, not in pain, No uncomfortable Cardiovascular: regular rate and rhythym, no murmur, rub, or gallop, No edema Respiratory: no respiratory distress, no rales or rhonchi, clear to auscultation Gastrointestinal: normoactive bowel sounds, soft, non-tender abdomen, other (non -tender hepatomegally), No guarding, No distension Skin: No rash Neurologic: AAOx3, sensation intact bilaterally, No weakness Psychiatric: interacting appropriately, not anxious, not encephalopathic, thought process linear ICD10 Worksheet Patient Problems: Problems Problem Status Onset Fever Acute
[2018-01-28 05:41] LABS: PLATELET COUNT 358 10^3/uL (150-400)
[2018-01-28] MEDS: LEVOTHYROXINE 75 MCG TAB PO SCH (05:53)
[2018-01-28 07:31] VITALS: BP 134/74; PULSE 60; RESP 18; TEMP 98.3; O2SAT 97
[2018-01-28] MEDS: OMEGA-3 FATTY ACIDS 1,000 MG CAP PO SCH (08:50)
[2018-01-28] MEDS: CHOLECALCIFEROL VIT D3 1,000 UNITS TAB PO SCH (08:50)
--- NOTE | 2018-01-28 22:13 | PDDCSUM ---
Discharge Summary Discharge Summary: Date of Admission: 01/24/18 Date of Discharge: 01/28/18 Discharge Diagnoses: 1. Febrile illnes 2. Transaminitis and hepatic lesions 3. Eosinophilia 4. Suspected chronic Coronary Artery Disease 5. Acute metabolic acidosis Procedures: CTA r/o PE, no pulm lesions, CT abd/pelv demonstrating hepatomegally w/ lesions, US confirmed rounded lesions Consults: ID, Heme Physical exam: Afebrile x 2hrs, HR 60, SBP 130, sating well on room air, pain 0/ 10, calm, AAOx3 Labs: ALT 77, Alk Phos 182, Cr 0.9, bicarb 29, K 4.2, WBC 7,800, Eos 44%, Hgb 11.1, KIARRA pending/Rho/La pending Hospital course: Mr. Gonzalez presented w/ an acute febrile illness of unclear etiology. He was noted to have significant eosinophilia on outpatient labs (> 50%), which was confirmed on our labs, but fluctuated widely during his hospitalization. He spiked occasional fevers and responded supportively to tylenol PRN. He initially had metabolic acidosis, presumably 2/2 hypovolemia in setting of illness, and he responded to IVF. No antibiotics were administered, as no discreet infectious process was indentified. Imaging from head to pelvis was performed, and the only significant abnormality was hepatomegally w/ liver lesions, which corresponded to transaminitis. His liver synthetic function was intact. After ID and Heme consultations, and downtrended total WBC but persistent eosinophilia, the recommendation was made to gather tissue biopsy from liver. Since the patient had received full dose ASA for his supportive care of his fevers, the decision was made to safely wait 5 days from 01/25/18 ASA dosing, and perform the US-guided liver biopsy on 01/31/18 AM. After the patient was afebrile x 24hrs and feeling well, the decision was made to discharge, advise fever log, and take symptomatic tylenol w/ close outpatient PCP follow- up. The potential diagnoses including hematologic malignancy, unusual parasitic infxn, and acute, non-specific immunologic reaction were all d/w patient and family, and, based on the liver biopsy results, the patient will either be triaged to ID or Heme by his PCP. Discharge medication: please see official reconciliation sheet in chart; of note ASA and all NSAIDs discontinued. Discharge instructions: please f/u w/ Dr. Sharma next week, and then either Dr. Cruz or Dr. Villarreal, based on biopsy results. > 30 minutes spent on direct patient care, as well as discharge planning and preparation. Acute, w/ recurrence of eosinophilia today and Tmax 101F o/n, unclear etiology - rheum labs pending - strongolyoides neg, EPEC unlikely to be contributing cause - inflammatory markers (CRP/ESR) rising from prior outpt eval - cont to monitor off Abx 2. Transaminitis w/ hepatic lesions. Acute, new problem to this provider, further w/u indicated. Present on cT w/ hepatomegally (personally interpreted), unclear etiology - d/w Dr. Cruz, he recommends liver biopsy given possibility of malignancy, and he has consulted w/ Dr. Serna today - liver biopsy arranged via US by Dr. Valera tomorrow, send path, gram stain, cx , and getting US today to determine best visibility - NPO after MN 3. Suspected coronary artery disease. Chronic, chronically on aspirin 81, currently holding given the patient wants to take aspirin 325 as needed for fevers 4. Acute metabolic acidosis. 2/2 lactic acid, likely 2/2 hypovolemia, resolved w / IVF, symptomatically improved
== END 2018-01-28 11:39 | disposition home or self-care (01) | DRG 815 ==
LOC: F3E 14:28 → OBSVTOIN 01-25 20:03
PROVIDERS: ADMIT Internal Medicine; ATTEND Internal Medicine
DX: D72.1 Eosinophilia (principal); E87.2 Acidosis; R74.0 Nonspecific elevation of levels of transaminase and lactic acid dehydrogenase [LDH]; K76.9 Liver disease, unspecified; I25.10 Atherosclerotic heart disease of native coronary artery without angina pectoris; E86.1 Hypovolemia
CPT/HCPCS: 83516-90; 83520-90; 86235-90; G0378; Q9967

== ENCOUNTER 2018-01-31 08:39 | Outpatient (CLI) | payer OTHER ==
[2018-01-31] MEDS ORDERED: FLUMAZENIL 0.5 MG/5 ML MDV IVP PRN (08:44)
[2018-01-31] MEDS ORDERED: NALOXONE HCL 0.4 MG/ML INJ IVP PRN (08:44)
[2018-01-31] MEDS ORDERED: GLUCAGON HCL 1 MG VIAL IVP PRN (08:44)
[2018-01-31] MEDS ORDERED: ALTEPLASE 2 MG VIAL IVP PRN (08:44)
[2018-01-31] MEDS ORDERED: PROTAMINE SULFATE 50 MG/5 ML VIAL IVP PRN (08:44)
[2018-01-31] MEDS ORDERED: HEPARIN 10,000 UNIT/10 ML MDV (1,000 UNIT/ML) IVP PRN (08:44)
[2018-01-31] MEDS ORDERED: MEPERIDINE 25 MG/ML SYR IVP PRN (08:44)
[2018-01-31] MEDS ORDERED: fentaNYL 100 MCG/2 ML INJ IVP PRN (08:44)
[2018-01-31] MEDS ORDERED: MIDAZOLAM 2 MG/2 ML VIAL IVP PRN (08:44)
[2018-01-31] MEDS ORDERED: NS 1,000 ML IV SCH (08:45)
[2018-01-31 11:00] VITALS: O2SAT 97
[2018-01-31] MEDS ORDERED: ONDANSETRON 4 MG/2 ML VIAL IVP PRN (11:07)
[2018-01-31] MEDS ORDERED: oxyCODONE IR 5 MG TAB PO PRN (11:07)
--- NOTE | 2018-01-31 11:07 | PDPROPOC ---
Sedation Plan of Care Sedation Plan of Care: vital signs stable, mental status noted, patient educated of risks, benefits, alternatives, patient can tolerate sedation ASA Classification: ASA 1 Planned drugs: fentanyl, midazolam Mallampati Score: Class 1 Mallampati Reference Image: Patient passed 3-3-2 rule?: Yes
[2018-01-31 11:36] VITALS: BP 109/56; PULSE 64; RESP 12
== END 2018-01-31 14:20 | disposition home or self-care (01) ==
LOC: FIMAGING 08:39
PROVIDERS: ATTEND Internal Medicine Infectious Disease
PROC: 0FB03ZX Excision of Liver, Percutaneous Approach, Diagnostic (ICD-10-PCS; principal; 2018-01-31 10:10)
DX: K76.9 Liver disease, unspecified (principal); D72.1 Eosinophilia
CPT/HCPCS: 47000; 76942; 88312; 99152; 99153; J2250; J3010; J2310

== ENCOUNTER → 2018-04-10 | Outpatient (CLI) | payer OTHER ==
[~2018-04-10] MED LIST: IOPAMIDOL (ISOVUE-300) 100 ML BTL ONE
== END ==
LOC: FIMAGING 07:59
PROVIDERS: ATTEND Internal Medicine Hematology & Oncology
DX: K76.9 Liver disease, unspecified (principal); R59.0 Localized enlarged lymph nodes; K57.30 Diverticulosis of large intestine without perforation or abscess without bleeding; I70.0 Atherosclerosis of aorta; D72.1 Eosinophilia
CPT/HCPCS: 74177; Q9967

== ENCOUNTER → 2018-08-19 | Outpatient (CLI) | payer OTHER | LOC: BMCIMAGING 09:53 | PROVIDERS: ATTEND Internal Medicine | DX: N62 Hypertrophy of breast (principal) ==

== ENCOUNTER → 2018-09-18 | Outpatient (CLI) | payer OTHER | LOC: FIMAGING 08:08 | PROVIDERS: ATTEND Internal Medicine Hematology & Oncology | DX: K76.89 Other specified diseases of liver (principal); D73.89 Other diseases of spleen | CPT/HCPCS: 74177; Q9967; 82565-PO ==

== ENCOUNTER → 2019-01-15 | Outpatient (CLI) | payer OTHER | LOC: FIMAGING 18:00 | PROVIDERS: ATTEND Internal Medicine | DX: S83.232A Complex tear of medial meniscus, current injury, left knee, initial encounter (principal); S83.282A Other tear of lateral meniscus, current injury, left knee, initial encounter; S83.412A Sprain of medial collateral ligament of left knee, initial encounter; M76.32 Iliotibial band syndrome, left leg; M25.462 Effusion, left knee ==